=== PATIENT | female | born 1965 | race Caucasian/White ===

== ENCOUNTER 2017-01-19 17:37 | Emergency (ER) | payer OTHER ==
[~2017-01-19] VITALS: Ht 167.6 cm; Wt 64.5 kg
[~2017-01-19 17:37] MED LIST: RANI150T5
[2017-01-19 17:39] VITALS: Ht 167.6 cm; Wt 64.5 kg
[2017-01-19] MEDS ORDERED: HYDROCODONE/APAP (5/325) TAB PO ONE (19:00)
[2017-01-19] MEDS ORDERED: DIAZEPAM 5 MG TAB PO ONE (19:00)
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
--- NOTE | 2017-01-19 21:22 | RADRPT ---
PROCEDURE: CT lumbar spine without contrast CLINICAL INDICATION: Back pain. TECHNIQUE: A CT scan of the lumbar spine was performed without intravenous contrast. Coronal and s agittal reformatted images were generated. CTDIvol: 9.88 mGy. DLP: 255.75 mGy-cm. One or more of the following dose reduction techniques were used: - Automated exposure control. - Adjustment of the mA and/or kV according to patient size. - Use of iterative reconstruction technique. COMPARISON: None. FINDINGS: The lumbar lordosis is preserved without spondylolisthesis. The vertebral body heights are maintain ed. Bone mineralization is normal and there is no suspicious osseous lesion. A bone island is ident ified in the right iliac bone. No fracture or subluxation is identified. T12-L1 through L3-L4: There is no significant degenerative change. No spinal canal stenosis or neur al foraminal narrowing is seen. L4-L5: There is moderate loss of disk height and circumferential disk bulging. No significant spina l canal stenosis is seen at this level. There is mild to moderate left neural foraminal narrowing d ue to disk bulging and endplate osteophytosis. Mild right neural foraminal narrowing noted due to d isk bulging. L5-S1: There is no significant degenerative change. No spinal canal stenosis or neural foraminal na rrowing is seen. The extra spinal soft tissues are unremarkable. IMPRESSION: 1. No lumbar spine fracture or subluxation. 2. No significant spinal canal stenosis along the lumbar spine. 3. Mild to moderate left neural foraminal narrowing at L4-L5. RPTAT: HTAR .Kadeem Bojorquez MD, Date Time Electronically viewed and signed by .Kadeem Bojorquez MD, MD on 01/19/2017 21:22 .R/
[2017-01-19] MEDS ORDERED: DIAZ-90 PO (21:45)
[2017-01-19] MEDS ORDERED: HYDR-906 PO (21:45)
[2017-01-19] MEDS ORDERED: IBUP-1542 PO (21:45)
[2017-01-19 21:54] VITALS: BP 118/61; PULSE 81; RESP 20; TEMP 98.7
== END 2017-01-19 21:55 | disposition home or self-care (01) ==
LOC: FTE 17:37
DX: M54.5 Low back pain (principal); M51.37 Other intervertebral disc degeneration, lumbosacral region
CPT/HCPCS: 72131; Z7502; Z7610

== ENCOUNTER 2018-10-20 21:34 | Emergency (ER) | payer OTHER ==
[~2018-10-20] VITALS: Ht 160 cm; Wt 69.2 kg
[~2018-10-20 21:34] MED LIST changes: +DIAZ5TAB PO; +HYDR-4011 PO; +IBUP-1542 PO
[2018-10-20 21:52] VITALS: Ht 160 cm; Wt 69.2 kg
--- NOTE | 2018-10-21 00:01 | ERD ---
ER Documentation Chief Complaint Chief [facility] HPI 53-year-old female, previously healthy, presents to the emergency department, complaining of persistent right midfoot pain after sustaining a mechanical fall 5 days ago. The pain is dull, constant, 4/10, worsened by weightbearing activities. She denies distal weakness, numbness or tingling. ROS All systems reviewed and are negative except as per history of present illness. Medications Home Meds Active Scripts Acetaminophen* (Tylenol*) 325 Mg Tablet, 2 TAB PO Q6 PRN for PAIN AND OR ELEVATED TEMP, #20 TAB Prov:SANDRA BOOTH MD 10/21/18 Ibuprofen* (Motrin*) 400 Mg Tab, 400 MG PO Q6H PRN for PAIN AND OR ELEVATED TEMP, #20 TAB Prov:SANDRA BOOTH MD 10/21/18 Hydrocodone/Acetaminophen ([place] 5-325 Tablet) 1 Each Tablet, 1 TAB PO Q6H PRN for SEVERE PAIN LEVEL 7-10, #20 TAB Prov:PANCHO ESQUEDA NP 01/19/17 Diazepam* (Valium*) 5 Mg Tablet, 5 MG PO Q8 PRN for ANXIETY, #10 TAB Prov:PANCHO ESQUEDA NP 01/19/17 Ibuprofen* (Motrin*) 600 Mg Tab, 600 MG PO Q6H PRN for PAIN AND OR ELEVATED TEMP, #30 TAB Prov:PANCHO ESQUEDA NP 01/19/17 Reported Medications Ranitidine Hcl* (Ranitidine Hcl*) 150 Mg Tablet 09/07/10 Allergies Allergies: Coded Allergies: Penicillins (Verified Allergy, Mild, 01/19/17) amoxicillin (Verified Allergy, Mild, 01/19/17) ampicillin (Verified Allergy, Mild, 01/19/17) PMhx/Soc History of Surgery: Yes (Cholecystectomy "when I was 15", 2 C-sections, Tubal ligation.) Anesthesia Reaction: No Hx Neurological Disorder: No Hx Respiratory Disorders: No Hx Cardiac Disorders: No Hx Psychiatric Problems: No Hx Miscellaneous Medical Probl: No Hx Alcohol Use: No Hx Substance Use: No Hx Tobacco Use: No Smoking Status: Never smoker FmHx Family History: No diabetes, No coronary disease Physical Exam Vitals Vital Signs Date Temp Pulse Resp B/P (MAP) Pulse Ox O2 O2 Flow FiO2 Time Delivery Rate 10/21/18 98.0 68 16 108/67 100 Room Air 01:28 (81) 10/20/18 99.2 81 20 121/60 98 21:52 (80) Physical Exam Const: No acute distress Head: Atraumatic Eyes: Normal Conjunctiva ENT: Normal External Ears, Nose and Mouth. Neck: Full range of motion. No meningismus. Resp: Clear to auscultation bilaterally Cardio: Regular rate and rhythm, no murmurs Abd: Soft, non tender, non distended. Normal bowel sounds Skin: No petechiae or rashes Back: No midline or flank tenderness Ext: Right great toe with tenderness with passive motion, distal neurovascular exam intact, no cyanosis, or edema Neur: Awake and alert Psych: Normal Mood and Affect Results 24 hrs Patient: KIMI GRIMES : 1965 Age: 53 Sex: F [id number] DOS: 10/20/18 2348 Ordering MD: SANDRA BOOTH MD Location: [facility]TE Room/Bed: PROCEDURE: XR foot CLINICAL INDICATION: Pain TECHNIQUE: Three views of the right foot COMPARISON: None. FINDINGS: Bones No acute fracture or malalignment. Normal mineralization. Joints There are mild scattered degenerative changes . Soft tissues The soft tissues are unremarkable. IMPRESSION: No acute abnormalities. Mild scattered degenerative changes. Procedures/MDM Differential diagnosis include but not limited to: Toe sprain/strain, ligament injury, arthritis; low suspicion for fracture, dislocation, septic arthritis. Neurovascular exam grossly intact. no clinical findings suggestive of acute infectious process, no deformity, no rashes. Pertinent Data: X-rays: No fracture or dislocation Physical examination and clinical presentation consistent most likely with great toe sprain. Results and clinical impression discussed with patient who agrees with management. The patient is stable to be treated outpatient and will be discharged home with recommendations for ice, rest and partial immobilization. NSAIDs 3 times daily for 5 days and close monitoring. The patient was instructed to follow up with the primary care provider in the next 48h. If symptoms persist, worsen or new symptoms develop, then patient should return to the ED immediately. Instructions explained and given to patient with acknowledgment and demonstrated understanding. Disclaimer: Inadvertent spelling and grammatical errors are likely due to EHR/dictation software use and do not reflect on the overall quality of patient care. Also, please note that the electronic time recorded on this note does not necessarily reflect the actual time of the patient encounter. Departure Diagnosis: Primary Impression: Injury of toe Condition: Stable Patient Instructions: Sprain Toe Additional Instructions: Thank you very much for allowing us to participate in your care. Your health and safety is our top priority at [facility]. The evaluation in the emergency department has been done to rule out an acute emergency. Chronic, [id number] conditions may have not been evaluated; therefore, you need to follow up with a primary care provider in the next 48h. If symptoms persist, worsen or new symptoms develop, then patient should return to the ED immediately. Call your primary care doctor TOMORROW for an appointment during the next 2-4 days and bring all the information provided. Have prescriptions filled and follow precisely the directions on the label. If the symptoms get worse and your provider is unavailable, return to the Emergency Department immediately. SANDRA BOOTH MD Oct 21, 2018 00:01
[2018-10-21] MEDS ORDERED: IBUP-1561 PO (01:14)
[2018-10-21] MEDS ORDERED: ACET325T33 PO (01:15)
[2018-10-21 01:28] VITALS: BP 108/67; PULSE 68; RESP 16
== END 2018-10-21 01:28 | disposition home or self-care (01) ==
LOC: FTE 21:34
DX: S99.921A Unspecified injury of right foot, initial encounter (principal); W18.39XA Other fall on same level, initial encounter; Y92.9 Unspecified place or not applicable
CPT/HCPCS: 73630; Z7502